=== PATIENT | female | born 1960 | race Caucasian/White ===

== ENCOUNTER 2024-08-26 15:39 | Emergency (ER) | payer BC, SELFPAY ==
--- OUTSIDE RECORDS SUMMARY | 2024-08-26 15:42 | XMS_ITS | Clinical Summary ---
Author Organization [facility] Address [address] [place] [id number] Care Team Providers Care Sr Community Manager Name Role Phone Cyndi Hankins DO Primary Care Provider [phone] Allergies Active Allergy Reactions Criticality Noted Date Comments Penicillins Rash Medications loratadine (Claritin) 10 mg tabletIndicatio ns:Seasonal allergies,Chron ic allergic rhinitis Take 1 Tablet (10 mg) by mouth once daily. 0 01/25/2021 Active prednisoLONE acetate 1% ophthalmic (ECONOPRED PLUS, PRED FORTE, OMNIPRED) suspensionIndic ations:Dry eyes Place 1 Drop into both eyes four times daily. 5 mL 01/28/2023 Active fluorometholone (FML) 0.1 % ophthalmic suspension 11/15/2023 Active rosuvastatin (CRESTOR) 10 mg tabletIndicatio ns:Elevated coronary artery calcium score Take 1 Tablet (10 mg) by mouth at bedtime. 90 Tablet 3 02/03/2024 Active montelukast 10 mg tabletIndicatio ns:Seasonal allergies,Chron ic allergic rhinitis TAKE ONE TABLET BY MOUTH AT BEDTIME . 90 Tablet 2 06/01/2024 Active Active Problems Problem Noted Date Diagnosed Date Pap smear for cervical cancer screening 02/08/20 23 Overview (02/10/2024): 01/2023 UNS/HPV Negative 01/2024 NIL Plan: Routine screening Family history of osteoporosis 05/05/2018 Screen for colon cancer 05/30/2010 Overview (06/17/2020): Colonoscopy 05/2010 normal repeat in 10 years Incomplete colonoscopy 06/2020 redundant colon, regarding CT colon Other acne 11/02/2008 Chronic allergic rhinitis 11/02/2008 Encounters Date Type Department Care Team Description 05/31/2024 Refill [facility] [address] [place] [address] Cyndi Hankins DO Refill Request (Montelukast) from Last 3 Months Immunizations Immunization Administration Dates Next Due COVID-19 VACCINE COMIRNATY ([employer] 30MCG/0.3ML) 12YO+ PFS 11/25/2022 COVID-19 vaccine (Pfizer-Bio NTech 30mcg/0.3mL) 12YO+ BIVALENT PF, MDV 11/22/2021 INFLUENZA, IIV3 PF (AGE >= 6 MO) 11/18/2023 Influenza, IIV3 (Age 6-35 mos) 11/10/2010,2008 Influenza, IIV3 (Age >=3 years) 12/03/19,11/26/2012,11/16/2011,2010,12/11/2009 Influenza, IIV4 11/22/2021,,01/09/2018,2016,12/12/2015,12/08/2014,12/02/2013 Influenza, IIV4 (=>6mos) MDV 12/03/2019,11/22/19 Influenza, IIV4 (Age 6-35 Mos) 11/21/2018 Influenza,CCIIV4 PRESERV FREE 11/25/2022 Td (Age >=7 Years) 01/09/2018,08/08/1996 Tdap 10/22/2006 Zoster (Shingrix-RZV, recombinant) 11/21/2018, Family History Medical History Relation Name Comments Asthma Brother Cancer Father unknown d at 72 Other Father COPD Stroke Father at 71 yo b 193 Cancer-breast Maternal Grandmother Cancer-breast Mother when 57 yo Heart Disease Mother PR at 75 Osteoporosis Mother Other Mother polio as child b 1933 Osteoporosis Sister severe Cancer-ovarian No Family History Relation Name Status Comments Brother Father Maternal Grandmother Mother Sister Social History Tobacco Use Types Packs/Day Years Used Date Smoking Tobacco: Never Smokeless Tobacco: Never Tobacco Cessation:Counseling Given: Yes Alcohol Use Standard Drinks/Week Comments Yes 1.7 (1 standard drink = 0.6 oz p ure alcohol) PHQ-2 Answer Date Recorded PHQ-2 TOTAL SCORE 0 01/28/2023 Social Connections Answer Date Recorded Do you often feel lonely or isolated from those around you? 0 02/03/2024 Financial Resource Strain Answer Date R ecorded Difficulty of Paying Living Expenses 3 02/03/2024 Difficulty of Paying Living Expenses Not on file 02/03/2024 Food Insecurity Answer Date Recorded Do you worry your food will run out before you are able to buy more? 1 02/03/2024 Transportation Needs Answer Date Record ed Does lack of transportation keep you from medica l appointments? 1 02/03/2024 Does lack of transportation keep you from work, meetings or getting things that you need? 1 02/03/2024 Housing Stability Answer Date Recorded What is your housing situation today? 1 02/03/2024 Utilities Answer Date Recorded Do you have trouble paying f or utilities (for example, heat, electricity, water, phone)? 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 Last Filed Vital Signs Vital Sign Reading Time Taken Comments Blood Pressure 127/76 02/03/2024 3:40 PM SOFTWARE ADMINISTRATOR Pulse 70 02/03/2024 3:40 PM SOFTWARE ADMINISTRATOR Temperature 36.8 C (98.2 F) 06/04/2015 11:14 AM CDT Respiratory Rate - - Oxygen Saturation 98% 02/03/2024 3:40 PM SOFTWARE ADMINISTRATOR Inhaled Oxygen Concentration - - Weight 50.8 kg (112 lb 1.6 oz) 02/03/2024 3:40 P M SOFTWARE ADMINISTRATOR Height 153.8 cm (5' 0.55) 02/03/2024 3:40 PM CS T Body Mass Index 21.5 02/03/2024 3:40 PM SOFTWARE ADMINISTRATOR Plan of Treatment Health Maintenance Due Date Last Done Comments Pneumococcal series for age 50+ (1 of 2 - PCV) 10/13/1978 RSV vaccine for adults or (1 - Risk 60-74 years 1-dose series) 2019 Depression screening for age 12+ 01/30/2024 01/29/2023, 01/28/2023, 02/20/2022, Additional history exists BMI (ht and wt on same day) for age 18+ 02/02/2025 02/03/2024, 01/28/2023, 01/26/2022, Additional history exists Mammogram for age 45-75 02/02/2025 02/03/20, 01/28/2023, 01/26/2022, Additional history exists CT Colonography for age 45-75 06/17/2025 06/17/2020 Tetanus booster 01/10/2028 01/09/2018, 10/03, 08/08/1996 Lipids for age 45-75 02/02/2029 02/03/2024, 01/28/2023, 01/26/2022, Additional history exists Pap test for age 21-65 02/02/2029 , 01/28/2023, 01/09/2018, Additional history exists Tdap Completed 10/22/2006 Hepatitis C screening for age 18-79 Completed 12/02/2013 Zoster (shingles) series for age 50+ Completed 11/21/2018, 09/08/2018 HIV for age 15-65 Completed 01/26/2022 COVID-19 vaccine series Completed 11/18/19, 11/25/2022, 11/22/2021, Additional history exists Influenza Vaccine Completed 11/18/2023, , 11/22/2021, Additional history exists Hepatitis B series for 19+ Aged Out N o longer eligible based on patient's age to complete this topic Procedures Procedure Name Priority Date/Time Associated Diagnosis Comments XR MAMMO MILLY BILAT SCREEN Routine 02/03/2024 4:52 PM SOFTWARE ADMINISTRATOR Visit for screening mammogram LIPID PANEL W REFLEX MEASURED LDL Routine 02/03/2024 4:27 PM SOFTWARE ADMINISTRATOR 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 PAP SCREEN IMAGED Routine 02/03/2024 4:00 PM SOFTWARE ADMINISTRATOR Pap smear for cervical cancer screening ANTI HIV 1/2 Routine 01/26/2022 9:08 AM SOFTWARE ADMINISTRATOR Screening for HIV (human immunodeficiency virus) CT ABDOMEN PELVIS COLONOGRAPHY DIAGNOSTIC W Routine 06/17/2020 11:37 AM CDT Screening for colon cancer Procedure and treatment not carried out for other reasons ANTI HCV Routine 12/02/2013 4:45 PM CDT Need for hepatitis C screening test from Last 3 Months or Most Recently Relevant to Health Maintenance Results * XR MAMMO MILLY BILAT SCREEN (02/03/2024 4:52 PM SOFTWARE ADMINISTRATOR) Anatomical Region Laterality Modality BREASTS, Breast Left, Breast Right Bilateral Mammography Impressions 02/05/2024 3:39 PM SOFTWARE ADMINISTRATOR There is no radiographic evidence for malignancy. Recommend annual mammograms. MAMMOGRAM ASSESSMENT: ACR 1 Negative PATIENTS: You will also receive a letter with your examination results in an easy to read format. If you have questions about your results, please contact your referring provider. Narrative 02/05/2024 3:39 PM SOFTWARE ADMINISTRATOR For Patients: As a result of the 21st Century Cures Act, medical imaging exams and procedure reports are released immediately into your electronic medical record. You may view this report before your referring provider. If you have questions, please contact your health care provider. XR MAMMO MILLY BILAT SCREEN [[id number]] CLINICAL HISTORY: This is an asymptomatic 63 y.o. patient. INDICATION FOR EXAM: Mammogram Screening. TECHNIQUE: CC & MLO views were obtained. This study was evaluated with the assistance of Computer-Aided Detection. Breast Tomosynthesis was used in interpretation. COMPARISON FILM: Yes 01/28/23 [facility] 01/26/22 [facility] FINDINGS: The breasts are heterogeneously dense, which may obscure small masses. There are no dominant masses, suspicious micro calcifications or areas of architectural distortion. [facility] DO MAMMO Final Result * LIPID PANEL W REFLEX MEASURED LDL (02/03/2024 4:27 PM SOFTWARE ADMINISTRATOR) CHOLESTEROL, TOTAL 195 <200 mg/dL [facility] HDL CHOLESTEROL 116 > OR = 50 mg/dL [facility] TRIGLYCERIDES 82 <150 mg/dL [facility] LDL-CHOLESTEROL 63 mg/dL (calc) [facility] Comment: Reference range: <100 Desirable range <100 mg/dL for primary prevention; <70 mg/dL for patients with CHD or diabetic patients with > or = 2 CHD risk factors. LDL-C is now calculated using the Susana calculation, which is a validated novel method providing better accuracy than the Friedewald equation in the estimation of LDL-C. Chay SS et al. FRANCHESKA. 2013;310(19): 2910-7276 (http://education.[employer]/faq/DWX969) CHOL/HDLC RATIO 1.7 <5.0 (calc) [facility] NON HDL CHOLESTEROL 79 <130 mg/dL (calc) [facility] Comment: For patients with diabetes plus 1 major ASCVD risk factor, treating to a non-HDL-C goal of <100 mg/dL (LDL-C of <70 mg/dL) is considered a therapeutic option. Blood BLOOD SPECIMEN / Unknown 02/03/2024 4:27 PM SOFTWARE ADMINISTRATOR 02/03/2024 4:28 PM SOFTWARE ADMINISTRATOR Adei Donteq DO CHEMISTRY Final Result [employer] [facility] [address] [place] [address], 10X10 [facility] [address] [facility] [place] [address] * 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 AND CAN SUPPLY THIN PREP PAP SCREEN IMAGED (02/03/2024 4:00 PM SOFTWARE ADMINISTRATOR) Case Report Gynecologic Cytology Report Case: [id number] Authorizing Provider: Cyndi Hankins DO Collected: 02/03/2024 1600 Ordering Location: [facility] Received: 02/03/2024 1708 Clinic First Screen: Jennifer Glass Specimen: 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[employer] AND CAN SUPPLY ThinPrep Vial Screening, Cervical 02/07/2024 2:07 PM SOFTWARE ADMINISTRATOR [facility] INTERPRETATION/ RESULT NEGATIVE FOR INTRAEPITHELIAL LESION OR MALIGNANCY (NIL) (none) 02/07/2024 2:07 PM SOFTWARE ADMINISTRATOR [facility] at 1407 SOFTWARE ADMINISTRATOR SPECIMEN ADEQUACY Satisfactory for evaluation Endocervical component present Scant cellularity 02/07/2024 2:07 PM SOFTWARE ADMINISTRATOR [facility] HPV REQUEST HPV not requested 2023 2:07 PM SOFTWARE ADMINISTRATOR [facility] Date of LMP N/A 02/07/2024 2:07 PM SOFTWARE ADMINISTRATOR [facility] Last Pap Date 01/28/23 02/07/2024 2:07 PM SOFTWARE ADMINISTRATOR [facility] Last Pap Result UNS 2:07 PM SOFTWARE ADMINISTRATOR [facility] Abnormal Pap or [place] Bx in last 5 years No 02/07/2024 2:07 PM SOFTWARE ADMINISTRATOR [facility] Menstrual Status Postmenopausal 02/07/2024 2:07 PM SOFTWARE ADMINISTRATOR [facility] [place] Bx Done Today No 02/07/2024 2:07 PM SOFTWARE ADMINISTRATOR [facility] Additional Information None given 02/07/2024 2:07 PM SOFTWARE ADMINISTRATOR [facility] Comment: Cytology is screened at [facility], [facility] - [address], [place] [address] and [facility] - [address], [place] [address] and [facility] - [address] [place] [address] Interpreted at [facility] - [address] [place] [address] Automated Review Successful 02/07/2024 2:07 PM SOFTWARE ADMINISTRATOR [facility] Comment:Specimen processed s uccessfully by automated assembler billiard table device, Thin[employer] Imaging System, [employer] Note The pap test is a screening technique, not a diagnostic procedure. It is used primarily to screen for squamous cancers and precursor lesions. Published studies have shown that it is subject to both false negative and false positive results. The pap test should not be used as the sole means to diagnose or exclude pre-malignant and malignant lesions. 02/07/2024 2:07 PM SOFTWARE ADMINISTRATOR [facility] Other (Cervical) Non-Blood / Unknown 02/03/2024 4:00 PM SOFTWARE ADMINISTRATOR 02/03/2024 5:08 PM SOFTWARE ADMINISTRATOR [facility] PATHOLOGY/CYTOLOGY Final Result Performing Organization Address City/[facility]/ZIP Co de Phone Number [facility] [address] [place] [address], [place] * ANTI HIV 1/2 [86510.0] (01/26/2022 9:08 AM SOFTWARE ADMINISTRATOR) HIV-1/HIV-2 ANTIBODY Non-Reacti ve Non-Reacti ve 01/27/2022 10:38 AM SOFTWARE ADMINISTRATOR [facility] Comment:HIV-1 p24 and HIV-1/ HIV-2 Ab not detected. Blood BLOOD SPECIMEN / Unknown Venipuncture / Unknown 01/26/2022 9:08 AM SOFTWARE ADMINISTRATOR 01/26/2022 9:09 AM SOFTWARE ADMINISTRATOR [facility] DO SEND OUTS Final Result [facility] [address] [place] [address], [place] * CT ABDOMEN PELVIS COLONOGRAPHY DIAGNOSTIC W (06/17/2020 11:37 AM CDT) Anatomical Region Laterality Modality Abdomen Other 06/17/2020 11:3 7 AM CDT Narrative 06/17/2020 5:29 PM CDT EXAM DATE: 06/17/2020 EXAM: CT COLONOGRAPHY LOCATION: [facility] [place] [facility] DATE/TIME: 06/17/2020 12:00 PM INDICATION: Screening, average risk. Incomplete colonoscopy due to colonic tortuosity and redundancy. Colonoscopy reached the splenic flexure colon. COMPARISON: Colonoscopy report from earlier today. TECHNIQUE: Prone and supine CT abdomen and pelvis with air insufflation per rectum, with image postprocessing. Oral contrast. Dose reduction techniques were used. CONTRAST: None. FINDINGS: COLON: Colonic tortuosity and redundancy. Colon is otherwise normal with no polyp, mass or stricture. No colonic perforation. All segments well seen. C Score: C1 Note: CT colonography is not intended for the detection of diminutive polyps (i.e. polyps less than or equal to 5mm), the presence of which will not likely spinning frame changer of the patient. ADDITIONAL FINDINGS: Benign calcified granuloma left upper lobe and benign calcified left hilar lymph node. Mild bile duct dilatation to the level of the ampulla with no radiodense stone or visible mass is likely due to reservoir effect from prior cholecystectomy. No significant finding in the liver, spleen, pancreas, adrenal glands, and kidneys. Normal caliber abdominal aorta. No pelvic masses. E Score: E3, Likely unimportant, incompletely characterized IMPRESSION: 1. Colonic tortuosity and redundancy. 2. Colon is otherwise normal with no polyp, mass or stricture. 3. Mild bile duct dilatation to the level of the ampulla with no radiodense stone or visible mass is likely due to reservoir effect from prior cholecystectomy. 4. No significant extracolonic findings. Procedure Note Sheldon Burgos MD - 06/17/2020 EXAM DATE: 06/17/2020 EXAM: CT COLONOGRAPHY LOCATION: [facility] [place] [facility] DATE/TIME: 06/17/2020 12:00 PM INDICATION: Screening, average risk. Incomplete colonoscopy due to colonic tortuosity and redundancy. Colonoscopy reached the splenic flexurecolon. COMPARISON: Colonoscopy report from earlier today. TECHNIQUE: Prone and supine CT abdomen and pelvis with air insufflationper rectum, with image postprocessing. Oral contrast. Dose reductiontechniques were used. CONTRAST: None. FINDINGS: COLON: Colonic tortuosity and redundancy. Colon is otherwise normal withno polyp, mass or stricture. No colonic perforation. All segments well seen. C Score: C1 Note: CT colonography is not intended for the detection of diminutivepolyps (i.e. polyps less than or equal to 5mm), the presence of which will not likelychange management of the patient. ADDITIONAL FINDINGS: Benign calcified granuloma left upper lobe and benign calcified left hilar lymph node. Mild bile duct dilatation to the level ofthe ampulla with no radiodense stone or visible mass is likely due toreservoir effect from prior cholecystectomy. No significant finding in the liver, spleen, pancreas, adrenal glands, and kidneys. Normal caliber abdominal aorta. Nopelvic masses. E Score: E3, Likely unimportant, incompletely characterized IMPRESSION: 1. Colonic tortuosity and redundancy. 2. Colon is otherwise normal with no polyp, mass or stricture. 3. Mild bile duct dilatation to the level of the ampulla with noradiodense stone or visible mass is likely due to reservoir effect from priorcholecystectomy. 4. No significant extracolonic findings. Chay Medina MD CT Final Res ult * ANTI HCV [[id number]] (12/02/2013 4:45 PM CDT) HEPATITIS C ANTIBODY Non-Reacti ve Non-Reacti ve 12/03/2013 2:17 PM CDT [facility] Blood specimen (specimen) BLOOD SPECIMEN / Unknown Venipuncture / Unknown 12/02/2013 4:45 PM CDT 12/02/2013 4:45 PM CDT Narrative [facility] - 12/03/2013 2:17 PM CDT Antibodies to HCV not detected; does not exclude the possibility of exposure to HCV. us Christian Evans MD SEND OUTS Final Re sult [facility] [address] [place] [address], [place] from Last 3 Months or Most Recently Relevant to Health Maintenance Insurance [facility] Care Teams Sr Community Manager Relationship Specialty Start Date End Date Cyndi Hankins DO [address] [place] [address] PCP - General Family Practice 10/19/21
[2024-08-26 15:50] VITALS: BP 151/68; PULSE 78; RESP 16; TEMP 36.6; O2SAT 97; BMI 21.2
--- NOTE | 2024-08-26 18:22 | US_ITS ---
Patient: JOMAR NICOLE Facility:?[facility] Patient ID:?[id number] Site Patient ID:?[id number] Site :?[id number] Study:?US-Extremity Right lower venous-08/26/2024 8:52:41 PM Ordering Physician:?Joe Mchugh Final Report: INDICATION: Leg pain and swelling. TECHNIQUE: Ultrasound venous duplex lower right extremity. Compression venous exam was performed using gallegos-scale, color Doppler, and spectral Doppler analysis. COMPARISON: None. FINDINGS: Deep veins: Sonographic imaging demonstrates the right common femoral, deep femoral, superficial femoral, popliteal, posterior tibial and the contralateral common femoral veins to be fully compressible with normal color Doppler blood flow. Superficial veins: Greater saphenous vein is fully compressible. No popliteal cyst. IMPRESSION: Normal right lower extremity venous ultrasound, no sign of deep venous thrombosis. Dictated by Chris Whitt MD @ 08/26/2024 9:13:51 PM Signed by:?Chris Whitt MD @08/26/2024 9:13:51 PM (Electronic Signature)
[2024-08-26 18:49] LABS: Basophils Absolute Auto 0.03 K/uL (0.00-0.30); Basophils Percent Auto 0.5 % (0.0-3.0); Eosinophils Percent Auto 7.3 % (0.0-7.0); Hematocrit 40.2 % (33.0-51.0); Hemoglobin* 13.2 gm/dL (12.0-16.0); Immature Granulocytes Abs Auto 0.01 K/uL (0.00-0.30); Immature Granulocytes Pct Auto 0.2 %; Lymphocytes Absolute Auto 1.82 K/uL (0.90-2.90); Lymphocytes Percent Auto 29.7 % (20-44); Mean Corpuscular HGB Conc 33 gm/dL (32-36); Mean Corpuscular Hemoglobin 30 pg (26-34); Mean Corpuscular Volume 91 fL (80-100); Monocytes Percent Auto 8.5 % (0.0-11.0); Neutrophils Percent Auto 53.8 % (42.0-72.0); Platelet Count* 202 K/uL (140-440); RDW Coefficient of Variation % 12.6 % (11.5-15.5); White Blood Count* 6.13 K/uL (4.50-11.00)
[2024-08-26 18:52] LABS: Slide Review Reflex No
[2024-08-26 19:06] LABS: Chloride* 105 mmol/L (96-114); Potassium* 4.1 mmol/L (3.6-5.1); Sodium* 140 mmol/L (135-149)
[2024-08-26 19:09] LABS: Anion Gap 7 mEq/L (7-15); Blood Urea Nitrogen* 23 mg/dL (7-30); Calcium* 9.6 mg/dL (8.4-10.6); Carbon Dioxide* 28 mmol/L (20-32); Creatinine* 0.6 mg/dL (0.5-1.5); Est. Creatinine Clearance* 42.89; Estimated Glomerular Filt Rate 100 ml/min; Glucose* 96 mg/dL (60-115)
--- NOTE | 2024-08-26 19:11 | ED.GENADULT ---
HPI - General Adult General Date Seen: 08/26/24 Chief complaint: Lower Extremity Swelling Stated complaint: Potentially infected dog bite wounds R leg Time Seen by Provider: 08/26/24 17:43 Source: patient Mode of arrival: ambulatory Limitations: no limitations History of Present Illness HPI narrative: Patient is a 63-year-old female presenting for right leg swelling and pain. She states 3 days ago she was bit by a dog. After that she can not get the bleeding to stop on her leg so she went to Urgent Care were stitches were placed. She was started on doxycycline due to allergy to penicillins. Since then she has noticed increased swelling to her right lower extremity. Thought the leg felt warm earlier today but now states the leg feels back to normal temperature. Has noticed some pain to the calf. No history of blood clots. Has not had any fevers, chills, fatigue, lightheadedness, dizziness, weakness, numbness, chest pain, shortness of breath. Related Data Home Medications ?Medication ?Instructions ?Recorded ?Confirmed rosuvastatin 10 mg tablet 10 mg PO QPM 08/23/24 08/26/24 Previous Rx's ?Medication ?Instructions ?Recorded doxycycline hyclate 100 mg tablet 100 mg PO BID 7 days #14 tabs 08/23/24 Allergies Allergy/AdvReac Type Severity Reaction Status Date / Time Penicillins Allergy Mild Verified 08/26/24 15:49 Review of Systems Status of ROS: Reports: 10 or more systems reviewed and unremarkable except as noted in History and below PFS PFS Social History Smoking Status: Never smoker How often do you have a drink containing alcohol: 2-3 times a week How many standard drinks containing alcohol do you have on a typical day: 1 or 2 How often do you have six or more drinks on one occasion: Never AUDIT-C Alcohol total score: 3 Non-prescribed substance use: denies use service: No Exam Narrative: Exam Narrative: Const: Well-nourished, Well-developed, in mild distress Eyes: PERRL, no conjunctival injection, and symmetrical lids HENT: Atraumatic external nose and ears. Moist mucous membranes. Neck: Symmetric, trachea midline, No thyromegaly. CVS: RRR, No murmurs or gallops. Peripheral pulses 2+ and equal in all extremities RESP: Unlabored respiratory effort. Clear to auscultation bilaterally. GI: Nontender/Nondistended, No rebound or guarding. MSK:Extremities w/o deformity, Normal Active ROM, swollen right lower extremity with some calf tenderness. Skin: Warm, Dry. No rashes or lesions. Well-healing bite wounds to right lower extremity with some mild warmth around the 1 next to the knee Neuro: Normal Muscle tone, No focal neurological deficits. Psych: Awake, Alert, & Oriented x3. Appropriate mood and affect. Const: Vital Signs, click to edit/add: Vital Signs - 24 hr 08/26/24 15:50 Temperature 97.9 F Pulse Rate [Pulse Oximeter] 78 Respiratory Rate 16 Blood Pressure [Ri ght Upper Arm] 151/68 H Pulse Oximetry 97 Oxygen Delivery Me thod Room Air Course Vital Signs Vital signs: Initial Vital Signs Temperature 97.9 F 08/26/24 15:50 Temperature Source Temporal Artery Scan 08/26/24 15:50 Pulse Rate 78 08/26/24 15:50 Pulse Rhythm Regular 08/26/24 15:50 Respiratory Rate 16 08/26/24 15:50 Blood Pressure 151/68 H 08/26/24 15:50 Blood Pressure Mean 95 08/26/24 15:50 Blood Pressure Position Sitting 08/26/24 15:50 Pulse Oximetry 97 08/26/24 15:50 Oxygen Delivery Method Room Air 08/26/24 15:50 Vital Signs Temperature 97.9 F 08/26/24 15:50 Pulse Rate 78 08/26/24 15:50 Respiratory Rate 16 08/26/24 15:50 Blood Pressure 151/68 H 08/26/24 15:50 Pulse Oximetry 97 08/26/24 15:50 Oxygen Delivery Method Room Air 08/26/24 15:50 Temperature 97.9 F 08/26/24 15:50 Pulse Rate 78 08/26/24 15:50 Respiratory Rate 16 08/26/24 15:50 Blood Pressure 151/68 H 08/26/24 15:50 Pulse Oximetry 97 08/26/24 15:50 Oxygen Delivery Method Room Air 08/26/24 15:50 Medical Decision Making MDM Narrative Medical decision making narrative: Patient is 63-year-old female presenting for right lower extremity swelling. Swelling may just be from the healing process of the dog bites. Will do an ultrasound though to rule out any blood clots. Will do CBC and BMP to look for signs of systemic disease. On my exam her bites and leg do not appear infected although there is some increased warmth around the bite wounds. Him the read for the ultrasound shows no signs of blood clot. There has been issues pushing the images to CR[facility]. Due to that I do not find necessary to wait for the official read and will call the patient back if it is positive. She is agreeable to this plan. Lab work shows no signs of systemic disease. She overall is feeling well and I will add Augmentin to her doxycycline. She does have a previous penicillin allergy but she states that was decade ago and was just a rash. She feels comfortable taking the Augmentin. Lab Data Labs: Lab Results 08/26/24 Range/Units 18:34 WBC 6.13 (4.50-11.00) K/uL RBC 4.40 (4.00-5.20) m/uL Hgb 13.2 (12.0-16.0) gm/dL Hct 40.2 (33.0-51.0) % MCV 91 (80-100) fL MCH 30 (26-34) pg MCHC 33 (32-36) gm/dL RDW Coeff of Michelle 12.6 (11.5-15.5) % Plt Count 202 (140-440) K/uL Neut % (Auto) 53.8 (42.0-72.0) % Lymph % (Auto) 29.7 (20-44) % [place] % (Auto) 8.5 (0.0-11.0) % Eos % (Auto) 7.3 H (0.0-7.0) % Baso % (Auto) 0.5 (0.0-3.0) % Neut # (Auto) 3.30 (1.7-7.0) K/uL Lymph # (Auto) 1.82 (0.90-2.90) K/uL [place] # (Auto) 0.50 (0.00-0.90) K/UL Eos # (Auto) 0.40 (0.00-0.50) K/uL Baso # (Auto) 0.03 (0.00-0.30) K/uL Abs Immat Gran (auto) 0.01 (0.00-0.30) K/uL Imm/Tot Granulo (auto) 0.2 % Sodium 140 (135-149) mmol/L Potassium 4.1 (3.6-5.1) mmol/L Chloride 105 (96-114) mmol/L Carbon Dioxide 28 (20-32) mmol/L Anion Gap 7 (7-15) mEq/L BUN 23 (7-30) mg/dL Creatinine 0.6 (0.5-1.5) mg/dL Estimated Creat Clear 42.89 Estimated GFR 100 ml/min Glucose 96 (60-115) mg/dL Calcium 9.6 (8.4-10.6) mg/dL Discharge Plan Discharge Clinical Impression: Dog bite Qualifiers: Encounter type: subsequent encounter Qualified Code(s): W54.0XXD - Bitten by dog, subsequent encounter Patient Disposition: Home, Self-Care Condition: Stable Instructions: Animal Bite (ED) Additional Instructions: 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 He started having allergic reaction stop taking the medication. If he continued to have worsening symptoms return for re-evaluation. We will call you back if the official radiology read shows signs of a blood clot Prescriptions: No Action rosuvastatin 10 mg tablet 10 mg PO QPM doxycycline hyclate 100 mg tablet 100 mg PO BID 7 Days Qty: 14 0RF Follow Up/Referrals: TIM ALLEN DO [Primary Care Provider, Family Practice] Stand Alone Forms: MyHealth Info Instructions
== END 2024-08-26 19:56 | disposition home or self-care (01) ==
PROVIDERS: Emergency Provider Student in an Organized Health Care Education/Training Program; PCP Student in an Organized Health Care Education/Training Program
DX: S81.851A Open bite, right lower leg, initial encounter (principal); W54.0XXA Bitten by dog, initial encounter
CPT/HCPCS: 36415; 80048; 85025; 93971; 99283